=== PATIENT | male | born 1935 | race Two or more races ===

== ENCOUNTER 2017-03-15 22:02 | Emergency (ER) | payer SELFPAY ==
[2017-03-15 22:14] VITALS: BP 158/78; PULSE 64; TEMP 97.9; BMI 21.1
[2017-03-15] MEDS ORDERED: MECLIZINE HCL 25 MG TABLET (FP) PO STA (22:35)
--- NOTE | 2017-03-15 22:35 | PDOC ---
History of Present Illness - General History Source: Patient Exam Limitations: No Limitations - History of Present Illness Initial Comments: 03/15/17 23:10 The patient is a 81 year old male, with a significant past medical history of HTN (compliant with medications) who presents to the emergency department with lightheadedness and dizziness today. Patient notes he is visiting from [facility] however his flight back has been delayed for the past week. Patient reports generalized weakness and unsteady gait when walking for the past 2 days. Patient denies sick contacts or recent illness. Patient denies chest pain, headache, SOB, fever, chills, abdominal pain, nausea, vomit, diarrhea or constipation. He denies dysuria, frequency, urgency or hematuria. Allergies: NKA Past surgical history: None Social history: None PCP: None <Antonette Pan - Last Filed: 03/15/17 23:21> - General History Source: Patient <YarielDiego lopez - Last Filed: 03/16/17 00:21> - General Chief Complaint: Lightheaded Stated Complaint: WEAKNESS Time Seen by Provider: 03/15/17 22:25 Past History <Antonette Pan - Last Filed: 03/15/17 23:21> - Past Medical History HTN: Yes Other medical history: prostate problems - Psycho/Social/Smoking Cessation Hx Suicidal Ideation: No Smoking History: Never smoked <Diego Urban - Last Filed: 03/16/17 00:21> - Past Medical History Allergies/Adverse Reactions: Allergies Allergy/AdvReac Type Severity Reaction Status Date / Time No Known Allergies Allergy Verified 03/15/17 22:10 Home Medications: Ambulatory Orders Amox-Tr/K Cl [Augmentin 500Mg Tablet] 1 tab PO BID #14 tablet 03/16/17 Meclizine HCl 25 mg PO TID #30 tablet 03/16/17 Review of Systems - Review of Systems Comments:: 03/15/17 23:21 CONSTITUTIONAL: +generalized weakness. Absent: fever, chills, diaphoresis, malaise, loss of appetite HEENT: Absent: rhinorrhea, nasal congestion, throat pain, throat swelling, difficulty swallowing, mouth swelling, ear pain, eye pain, visual Changes CARDIOVASCULAR: Absent: chest pain, syncope, palpitations, irregular heart rate, lightheadedness , peripheral edema RESPIRATORY: Absent: cough, shortness of breath, dyspnea with exertion, orthopnea, wheezing, stridor, hemoptysis GASTROINTESTINAL: Absent: abdominal pain, abdominal distension, nausea, vomiting, diarrhea, constipation, melena, hematochezia GENITOURINARY: Absent: dysuria, frequency, urgency, hesitancy, hematuria, flank pain, genital pain MUSCULOSKELETAL: Absent: myalgia, arthralgia, joint swelling SKIN: Absent: rash, itching, pallor HEMATOLOGIC/IMMUNOLOGIC: Absent: easy bleeding, easy bruising, lymphadenopathy, frequent infections ENDOCRINE: Absent: unexplained weight gain, unexplained weight loss, heat intolerance, cold intolerance NEUROLOGIC: +dizziness. +unsteady gait. Absent: headache, focal weakness or paresthesias, seizure, mental status changes , bladder or bowel incontinence PSYCHIATRIC: Absent: anxiety, depression, suicidal or homicidal ideation, hallucinations. <Antonette Pan - Last Filed: 03/15/17 23:21> *Physical Exam - Vital Signs Last Vital Signs Temp Pulse Resp BP Pulse Ox 97.9 F 64 18 158/78 99 03/15/17 22:11 03/15/17 22:11 03/15/17 22:11 03/15/17 22:11 03/15/17 22:11 - Physical Exam Comments: 03/15/17 23:22 GENERAL: Well developed, well nourished. Awake and alert. In no acute distress. HEENT: Normocephalic, atraumatic. PERRLA, EOMI. No conjunctival pallor. Sclerae are non -icteric. Moist mucous membranes. Oropharynx is clear. NECK: Supple. Full ROM. No JVD. Carotid pulses 2+ and symmetric, without bruits. No thyromegaly. No lymphadenopathy. CARDIOVASCULAR: Regular rate and rhythm. No murmurs, rubs, or gallops. Distal pulses are 2+ and symmetric. PULMONARY: No evidence of respiratory distress. Lungs clear to auscultation bilaterally. No wheezing, rales or rhonchi. ABDOMINAL: Soft. Non-tender. Non-distended. No rebound or guarding. No organomegaly. Normoactive bowel sounds. MUSCULOSKELETAL Normal range of motion at all joints. No bony deformities or tenderness. No CVA tenderness. EXTREMITIES: No cyanosis. No clubbing. No edema. No calf tenderness. SKIN: Warm and dry. Normal capillary refill. No rashes. No jaundice. NEUROLOGICAL: Alert, awake, appropriate. Cranial nerves 2-12 intact. No deficits to light touch and temperature in face, upper extremities and lower extremities. No motor deficits in the in face, upper extremities and lower extremities. Normoreflexic in the upper and lower extremities. Normal speech. Toes are downgoing bilaterally. Gait is normal without ataxia. PSYCHIATRIC: Cooperative. Good eye contact. Appropriate mood and affect. <Antonette Pan - Last Filed: 03/15/17 23:21> - Vital Signs Last Vital Signs Temp Pulse Resp BP Pulse Ox 97.9 F 64 18 158/78 99 03/15/17 22:11 03/15/17 22:11 03/15/17 22:11 03/15/17 22:11 03/15/17 22:11 <Diego Urban - Last Filed: 03/16/17 00:21> ED Treatment Course - LABORATORY CBC & Chemistry Diagram: 03/15/17 22:48 03/15/17 22:48 - ADDITIONAL ORDERS Additional order review: 03/15/17 22:48 RBC 4.31 MCV 90.6 MCHC 34.9 RDW 13.8 MPV 8.9 Neutrophils % 53.1 Lymphocytes % 33.3 Monocytes % 7.5 Eosinophils % 5.4 H Basophils % 0.7 - Medications Given in the ED: ED Medications Discontinued Medications Generic Name Dose Route Start Last Admin Trade Name Freq PRN Reason Stop Dose Admin Meclizine HCl 25 mg 03/15/17 22:35 03/15/17 22:47 Antivert - PO 03/15/17 22:36 25 mg ONCE STA Administration <Antonette Pan - Last Filed: 03/15/17 23:21> - LABORATORY CBC & Chemistry Diagram: 03/15/17 22:48 03/15/17 22:48 <Diego Urban - Last Filed: 03/16/17 00:21> Medical Decision Making - Medical Decision Making 03/16/17 00:19 Dr. Urban: The scribe's documentation has been prepared under my direction and personally reviewed by me in its entirery. I confirm that the note above accurately reflects all work, treatment, procedures, and medical decision making performed by me. <Diego Urban - Last Filed: 03/16/17 00:21> *DC/Admit/Observation/Transfer - Attestations Scribe Attestion: 03/15/17 23:22 Documentation prepared by Antonette Pan, acting as biomedical engineering internship for Diego Urban DO. <Antonette Pan - Last Filed: 03/15/17 23:21> - Discharge Dispostion Admit: No <Diego Urban - Last Filed: 03/16/17 00:21> Diagnosis at time of Disposition: Vertigo Sinusitis Qualifiers: Sinusitis location: ethmoidal Chronicity: acute Recurrence: not specified as recurrent Qualified Code(s): J01.20 - Acute ethmoidal sinusitis, unspecified - Discharge Dispostion Disposition: HOME Condition at time of disposition: Stable - Referrals Referrals: Eusebio Rivas MD [Staff Physician] - - Patient Instructions Printed Discharge Instructions: DI for Vertigo, DI for Sinusitis Additional Instructions: Please take medication as directed. Please follow up with your doctor or the doctor given to you here in the ER.
[2017-03-15] MEDS ORDERED: MECLIZINE HCL 25 MG TABLET (FP) ONE (22:43)
[2017-03-15 23:00] LABS: BASOPHIL 0.7 % (0-2.0); EOSINOPHIL 5.4 % (0-4.5); MCH 31.6 pg (25.7-33.7); MCHC 34.9 g/dl (32.0-35.9); MEAN CELL VOLUME 90.6 fl (80-96); MEAN PLT VOLUME 8.9 fl (7.5-11.1); NEUTROPHILS 53.1 % (42.8-82.8); PLATELET COUNT 125 K/MM3 (134-434); RDW 13.8 % (11.9-15.9); WHITE BLOOD COUNT 7.8 K/mm3 (4.0-10.0)
[2017-03-15 23:10] LABS: URINE APPEARANCE CLEAR; URINE BILIRUBIN NEGATIVE (NEGATIVE); URINE BLOOD NEGATIVE (NEGATIVE); URINE COLOR LTYELLOW; URINE GLUCOSE (UA) NEGATIVE (NEGATIVE); URINE KETONE NEGATIVE (NEGATIVE); URINE LEUK ESTERASE NEGATIVE (NEGATIVE); URINE NITRITE NEGATIVE (NEGATIVE); URINE PROTEIN NEGATIVE (NEGATIVE); URINE UROBILINOGEN NEGATIVE mg/dL (0.2-1.0)
[2017-03-15 23:13] LABS: INR 1.06 (0.82-1.09); PROTHROMBIN TIME (PATIENT) 11.7 SEC (9.98-11.88)
[2017-03-15 23:19] LABS: ALBUMIN 3.6 g/dl (3.4-5.0); ANION GAP 12 (8-16); BILIRUBIN,TOTAL 0.3 mg/dL (0.2-1.0); CALCIUM 10.2 mg/dL (8.5-10.1); CO2 25 mmol/L (21-32); CREATININE 1.6 mg/dL (0.7-1.3); GLUCOSE,RANDOM 153 mg/dL (74-106); MAGNESIUM 1.8 mg/dL (1.8-2.4); SGOT/AST 49 U/L (15-37); SGPT/ALT 86 U/L (12-78); TOT PROT 7.7 g/dl (6.4-8.2)
[2017-03-15 23:22] LABS: ALK PHOS 96 U/L (45-117); CPK 200 IU/L (39-308); TROPONIN I < 0.02 ng/ml (0.00-0.05)
[2017-03-16] MEDS ORDERED: AMOX TR/POT CLAV 500MG/125MG TABLETS (FP) PO ONE (00:18)
[2017-03-16] MEDS ORDERED: AMOX TR/POT CLAV 500MG/125MG TABLETS (FP) ONE (00:53)
--- NOTE | 2017-03-16 11:52 | EKG ---
Test Reason : Blood Pressure : / mmHG Vent. Rate : 060 BPM Atrial Rate : 060 BPM P-R Int : 216 ms QRS Dur : 098 ms QT Int : 380 ms P-R-T Axes : 043 049 064 degrees QTc Int : 380 ms SINUS RHYTHM WITH 1ST DEGREE A-V BLOCK OTHERWISE NORMAL ECG NO PREVIOUS ECGS AVAILABLE REPEAT EKG IF CLINICALLY INDICATED Confirmed by ADIN ZELAYA MD ([id number]) on 03/16/2017 11:51:54 AM Referred By: Confirmed By:ADIN ZELAYA MD
== END 2017-03-16 01:21 | disposition home or self-care (01) ==
LOC: JER 22:02
DX: J01.20 Acute ethmoidal sinusitis, unspecified (principal); R42 Dizziness and giddiness; I10 Essential (primary) hypertension
CPT/HCPCS: 36415; 70450-TC; 80053; 81003; 82553; 83735; 84484; 85025; 85610; 93005; 93010; 99281-25